=== PATIENT | male | born 1990 | race Caucasian/White ===

== ENCOUNTER 2024-09-25 04:32 | Emergency (ER) | payer BC, SELFPAY ==
[2024-09-25 04:34] VITALS: BMI 18.1
[2024-09-25 04:58] VITALS: BP 118/78; PULSE 80; RESP 20; TEMP 36.7; O2SAT 97
--- NOTE | 2024-09-25 05:32 | PD.EDRME ---
Rapid Medical Screening Exam RME Arrival date/time: 09/25/24 04:32 33M with no significant PMH presents to ED Chief Complaint: Eye Problems Vital signs: Vital Signs Temperature 98.0 F 09/25/24 04:58 Pulse Rate 80 09/25/24 04:58 Respiratory Rate 20 09/25/24 04:58 Blood Pressure 118/78 09/25/24 04:58 Pulse Oximetry (%) 97 09/25/24 04:58 Oxygen Delivery Method Room Air 09/25/24 04:58
--- NOTE | 2024-09-25 05:55 | EDNOTE_ITS ---
ED Eye Problem RME/HPI General Chief complaint: Eye Problems Stated complaint: L EYE IRRITATION Time Seen by Provider: 09/25/24 05:56 Arrival date/time: 09/25/24 04:32 33M with no significant PMH presents to ED with 2 week of L eye irritation. No inciting injury. No vision changes. Patient does not wear contacts. Limitations: no limitations RME / HPI RME / HPI Narrative: 09/25/24 04:32 Related Data Previous Rx's ?Medication ?Instructions ?Recorded erythromycin 5 mg/gram (0.5 %) eye 0.5 inch ophthalmic (eye) QID 1 09/25/24 ointment week #3.5 grams Allergies Allergy/AdvReac Type Severity Reaction Status Date / Time No Known Allergies Allergy Verified 09/25/24 04:39 Review of Systems Review of Systems Systems Reviewed: All systems reviewed, normal except as documented Constitutional Constitutional: Reports system reviewed and no additional complaints, except as documented, Denies fever(s) and Denies headache(s) Eyes Eyes: Reports as per HPI and Reports irritation ENT Ears, Nose, Mouth, and Throat: Denies disequilibrium and Denies headache(s) Cardiovascular Cardiovascular: Reports system reviewed and no additional complaints, except as documented, Denies chest pain and Denies dyspnea Respiratory Respiratory: Reports system reviewed and no additional complaints, except as documented, Denies cough and Denies dyspnea Gastrointestinal Gastrointestinal: Reports system reviewed and no additional complaints, except as documented, Denies abdominal pain, Denies nausea and Denies vomiting Neurologic Neurologic: Reports system reviewed and no additional complaints, except as documented, Denies confusion, Denies disequilibrium and Denies headache(s) Psychiatric Psychiatric: Denies confusion Past Medical History Social History SMOKING STATUS: Never smoker ED Exam General Limitations: Present no limitations General appearance: Present alert and in no apparent distress Head Head exam: Present atraumatic Eye Eye exam: Present normal appearance, PERRL and EOMI ENT ENT exam: Present normal exam, normal oropharynx and mucous membranes moist Neck Neck exam: Present normal inspection, full ROM and trachea midline Chest Chest inspection: Present normal inspection and symmetric chest wall rise Respiratory Respiratory exam: Present normal lung sounds bilaterally Cardiovascular Cardiovascular exam: Present regular rate, normal rhythm and normal heart sounds Abdominal Exam Abdominal exam: Present soft and normal bowel sounds Extremities Exam Extremities exam: Present normal inspection and full ROM Back Exam Back exam: Present normal inspection and full ROM Neurological Exam Neurological exam: Present alert, oriented X3 and CN II-XII intact Psychiatric Psychiatric exam: Present normal affect and normal mood Skin Skin exam: Present warm, dry, intact and normal color Course Quality Measures none Orders Category Date Time Status ED Eye Irrigation ONCE Care 09/25/24 05:57 Active Hernandes Lamp to Bedside X1 Care 09/25/24 05:15 Active Erythromycin Op Oint 0.5% Med 09/25/24 05:57 Discontinued 1 gm LEFT EYE X1 ONE Fluorescein Sodium [Bio-Concha] Med 09/25/24 05:41 Discontinued 1 mg .ROUTE .STK-MED ONE Fluorescein Sodium [Bio-Concha] Med 09/25/24 05:15 Discontinued 1 mg BOTH EYES X1 ONE Fluorescein Sodium [Bio-Concha] Med 09/25/24 05:15 Discontinued 1 mg LEFT EYE X1 ONE Vital Signs Vital signs: Vital Signs Temperature 98.0 F 09/25/24 04:58 Pulse Rate 80 09/25/24 04:58 Respiratory Rate 20 09/25/24 04:58 Blood Pressure 118/78 09/25/24 04:58 Pulse Oximetry (%) 97 09/25/24 04:58 Oxygen Delivery Method Room Air 09/25/24 04:58 O2 at 97% on RA and WNLs Eye MDM Narrative MDM Narrative:: 33M with no significant PMH presents to ED with 2 week of L eye irritation. No inciting injury. No vision changes. Patient does not wear contacts. Physical exam reveals normal pupil response and EOM. Some redness, but no discharge. Patient is afebrile, calm, and alert. Wood's lamp exam reveals small V-shaped injury on L corneal. 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 Patient will see eye doctor on Friday. Patient data External records reviewed:: None Clinical information provided by:: patient Social determinants that could affect healthcare access:: none Patient has the following chronic illnesses:: none How is presenting disease/condition affected by chronic disease/condition?: no chronic disease Evaluation data The following diagnostics were reviewed and interpreted by me:: other (specify) (none) Lab and/or radiology exams considered but not ordered:: not ordered Interpretation Summary: n/a Medications / Prescriptions Medications or Prescriptions considered but not ordered:: ordered Medication administrations:: Medication Administration History Discontinued Medications Erythromycin (Erythromycin Op Oint 0.5% 1 Gm Packet) 1 gm LEFT EYE X1 ONE Stop: 09/25/24 05:58 Fluorescein Sodium (Fluorescein Sod 1 Mg Strp) 1 mg BOTH EYES X1 ONE Stop: 09/25/24 05:16 Fluorescein Sodium (Fluorescein Sod 1 Mg Strp) Confirm Administered Dose 1 mg .ROUTE .STK-MED ONE Stop: 09/25/24 05:42 Last Admin: 09/25/24 06:05 Dose: Not Given Documented By: AC Non-Admin Reason: Override Medication Fluorescein Sodium (Fluorescein Sod 1 Mg Strp) 1 mg LEFT EYE X1 ONE Stop: 09/25/24 05:16 above Consultations Consultation(s) initiated? (list below): No Diagnosis Eye Problem Differential Diagnosis: corneal abrasion, conjunctivitis, acute iritis, hyphema, periorbital cellulitis, subconjunctival hemorrhage, glaucoma, corneal ulcer, ruptured globe and other (corneal injury) Most likely diagnosis given after review of the tests above:: corneal injury Admission Indicated Admission indicated?: not indicated Admission Request Was there a request for admission?: No Disposition Plan Disposition Plan: Discharge Discharge Attestation Discharge Attestation: The patient and all family members were given an opportunity to ask questions and understood the discharge instructions. Discharge instructions specifically effects, indications for sooner follow up or return to the emergency department, and the expected course of current diagnosis. Patient condition: Stable Discharge Plan Plan Patient Disposition: HOME (Self Care) Discharge Disposition comment: Stable Prescriptions/Referrals Prescriptions/Med Rec: New erythromycin 5 mg/gram (0.5 %) ointment 0.5 inch ophthalmic (eye) QID 7 Days Qty: 3.5 0RF Problem List Clinical Impression: Corneal injury Patient/Caregiver Discharge Instructions Education Materials: Corneal Injury Additional Instructions: Please follow-up with PCP within 24-48 hours and return immediately if symptoms worsen. See eye doctor soon. Print Language: Moldovan Stand Alone Forms: Patient Portal Info Letter RAVEN/JULIO CÉSAR Supervising Physician RAVEN/JULIO CÉSAR Supervising Physician: Dr. Ambrosio
[2024-09-25] MEDS: FLUORESCEIN SOD 1 MG STRP LEFT EYE (06:11)
[2024-09-25] MEDS: Erythromycin Op Oint 0.5% 1 GM PACKET LEFT EYE (06:15)
== END 2024-09-25 06:20 | disposition home or self-care (01) ==
LOC: SERX 06:52
PROVIDERS: Emergency Provider Emergency Medicine
DX: S05.8X2A Other injuries of left eye and orbit, initial encounter (principal); X58.XXXA Exposure to other specified factors, initial encounter
CPT/HCPCS: 99283; A9270